=== PATIENT | female | born 1990 | race Caucasian/White ===

== ENCOUNTER 2019-10-18 20:34 | Emergency (ER) | payer OTHER ==
--- OUTSIDE RECORDS SUMMARY | ~2019-10-18 | XMS | Encounter Summary ---
Demographics + + + | Address | [address] | | | [place] [address] | + + + | Home Phone | | + + + | Preferred Language | Unknown | + + + | Marital Status | Single | + + + | Orthodoxy Affiliation | Unknown | + + + | Race | Unknown | + + + | Ethnic Group | Unknown | + + + Author + + + | Author | [facility] | | | and [place] | + + + | Organization | [facility] | | | and [place] | + + + | Address | Unknown | + + + | Phone | Unavailable | + + + Support + + +---------+ + | Name | Relationship | Address | Phone | + + +---------+ + | Keya Chakraborty | ECON | Unknown | | + + +---------+ + Care Team Providers + +------+ + | Care Microfilm Operator Name | Role | Phone | + +------+ + | Stacy Guajardo PA-C | PCP | | + +------+ + Reason for Visit + + + | Reason | Comments | + + + | Knee Pain | left knee injected in August 25, did not improve at all | + + + Encounter Details +--------+---------+ + + + | Date | Type | Department | Care Team | Description | +--------+---------+ + + + | 10/07/ | Office | [facility] | Ryan Youssef, | Prepatellar | | 2013 | Visit | ORTHOPEDIC SURGERY | [place] [facility] [address] | bursitis, left | | | | [address] [place] | [address] [place] | (Primary Dx) | | | | [facility], [place] | [place] [address] | | | | | [address] | [phone] | | | | | [phone] | | | +--------+---------+ + + + Social History + +-------+ +--------+------+ | Tobacco Use | Types | Packs/Day | Years | Date | | | | | Used | | + +-------+ +--------+------+ | Current Every Day | | 0.3 | 7 | | | Smoker | | | | | + +-------+ +--------+------+ + + +---------+ + | Alcohol Use | Drinks/Week | oz/Week | Comments | + + +---------+ + | No | | | RARE | + + +---------+ + + + + | Sex Assigned at | Date Recorded | | | | + + + | Not on file | | + + + documented as of this encounter Last Filed Vital Signs + + + + + | Vital Sign | Reading | Time Taken | Comments | + + + + + | Blood Pressure | - | - | | + + + + + | Pulse | - | - | | + + + + + | Temperature | - | - | | + + + + + | Respiratory Rate | - | - | | + + + + + | Oxygen Saturation | - | - | | + + + + + | Inhaled Oxygen | - | - | | | Concentration | | | | + + + + + | Weight | 131.5 kg (290 lb) | 10/07/2013 10:56 AM | | | | | PDT | | + + + + + | Height | 175.3 cm (5' 9") | 10/07/2013 10:56 AM | | | | | PDT | | + + + + + | Body Mass Index | 42.83 | 10/07/2013 10:56 AM | | | | | PDT | | + + + + + documented in this encounter Progress Notes Ryan Youssef PA - 10/07/2013 11:15 AM PDTSubjective:Tuyet presents to our clinic garo [facility]ong for left knee pain. Patient has had a several year history of waxing and waning prepatel lar bursitis. Patient was seen in our office On august. At this time, I attempted to as pirate fluid but was unable to retrieve any fluid. I did inject 1 cc of Celestone without d ifficulty. Patient did not receive any relief from this. She still today rates her pain ar ound a 4-6/10. With activity, her pain can get much worse than this. At her last visit do to her lateral joint line pain I also order an MRI of her knee however, this was denied by [facility] insurance. Today, she really does not have much lateral joint line pain. Her pain is fo cused just over the patella. Objectively: Inspection of skin is warm dry and intact. No gross deformity.Inspection of er knee does show swelling over the prepatellar bursa. Palpation over this area reveals bog giness in the prepatellar bursa. The surrounding area has well-defined borders. Patient villagomez s pain when palpating over this. There is no evidence of infection. Patient has no pain wh en palpating the infrapatellar tendon. Assessment:Chronic prepatellar bursitis Plan: Patient has had this prepatellar bursitis for a couple of years now. I was unable to aspirate fluid from the last visit and this is likely do to the fluid coming either thick l amanda or possibly even fibrous. There really are no further conservative treatment options av ailable. It is obvious that this is quite uncomfortable for her and she wishes to proceed w ith definitive treatment. Therefore, we will get authorization for a bursectomy of her left knee and she'll have for preop examination with Dr. Carroll. In the meantime, patient wi ll followup with Dr. Ewing regarding her low back pain. The above note was dictated using [employer] voice recognition software. It may have not been p roofread in entirety. Minor errors in grammar may occur. documented in this encounter Plan of Treatment Not on filedocumented as of this encounter Visit Diagnoses + + | Diagnosis | + + | Prepatellar bursitis, left - Primary | + + documented in this encounter
--- OUTSIDE RECORDS SUMMARY | ~2019-10-18 | XMS | Clinical Summary ---
Demographics + + + | Address | [address] | | | [place] [address] | + + + | Home Phone | | + + + | Preferred Language | Unknown | + + + | Marital Status | Single | + + + | Faith Affiliation | Unknown | + + + | Race | Unknown | + + + | Ethnic Group | Unknown | + + + Author + + + | Author | [facility] | | | and [place] | + + + | Organization | [facility] | | | and [...] Team Providers + +------+ + | Care Supervisor Taping Name | Role | Phone | + +------+ + | Stacy Guajardo PA-C | PCP | | + +------+ + Allergies + + + + + + | Active Allergy | Reactions | Severity | Noted | Comments | | | | | Date | | + + + + + + | Sulfa Antibiotics | Hives | Medium | 08/13/19 | | | | | | 14 | | + + + + + + Medications + + + +---------+------+------+-------+ | Medication | Sig | Dispensed | Refills | Star | End | Statu | | | | | | t | Date | s | | | | | | Date | | | + + + +---------+------+------+-------+ | ibuprofen | Take 800 mg by mouth | | 0 | | | Activ | | (ADVIL,MOTRIN) 800 | every 6 hours as | | | | | e | | MG tablet | needed. | | | | | | + + + +---------+------+------+-------+ | cyclobenzaprine | Take 10 mg by mouth | | 0 | | | Activ | | (FLEXERIL) 10 mg | 3 times daily as | | | | | e | | tablet | needed. | | | | | | + + + +---------+------+------+-------+ | FLUoxetine | Take 20 mg by mouth | | 0 | | | Activ | | (PROZAC) 20 mg | Daily. | | | | | e | | capsule | | | | | | | + + + +---------+------+------+-------+ | lisinopril | Take 10 mg by mouth | | 0 | | | Activ | | (PRINIVIL, ZESTRIL) | Daily. | | | | | e | | 10 mg tablet | | | | | | | + + + +---------+------+------+-------+ | meloxicam (MOBIC) | Take 1 tablet by | 30 | 2 | 10/2 | | Activ | | 15 mg tablet | mouth Daily as | tablet | | 1/20 | | e | | | needed for Pain. | | | 14 | | | + + + +---------+------+------+-------+ Active Problems + + + | Problem | Noted Date | + + + | L4-L5 and L5/S1 disc bulge w/ annular tear | 02/01/2014 | + + + | Trochanteric bursitis of both hips = L>R | 02/01/2014 | + + + | Chronic low back pain | 10/21/2013 | + + + | Left leg pain - possibly radicular in nature or may be more | 10/21/2013 | | consistent with IT band syndrome | | + + + Family History + + +------+ + | Medical History | Relation | Name | Comments | + + +------+ + | Alcohol abuse | Father | | | + + +------+ + | Arthritis | Father | | | + + +------+ + | COPD | Father | | | + + +------+ + | Depression | Father | | | + + +------+ + | Diabetes | Father | | | + + +------+ + | Gout | Father | | | + + +------+ + | Hearing loss | Father | | | + + +------+ + | Heart disease | Father | | | + + +------+ + | High blood pressure | Father | | | + + +------+ + | High cholesterol | Father | | | + + +------+ + | Vision loss | Father | | | + + +------+ + | Arthritis | Maternal | | | | | Grandfath | | | | | er | | | + + +------+ + | Asthma | Maternal | | | | | Grandfath | | | | | er | | | + + +------+ + | COPD | Maternal | | | | | Grandfath | | | | | er | | | + + +------+ + | Cancer | Maternal | | | | | Grandfath | | | | | er | | | + + +------+ + | Depression | Maternal | | | | | Grandfath | | | | | er | | | + + +------+ + | Hearing loss | Maternal | | | | | Grandfath | | | | | er | | | + + +------+ + | Arthritis | Maternal | | | | | Grandmoth | | | | | er | | | + + +------+ + | Cancer | Maternal | | | | | Grandmoth | | | | | er | | | + + +------+ + | Depression | Maternal | | | | | Grandmoth | | | | | er | | | + + +------+ + | Diabetes | Maternal | | | | | Grandmoth | | | | | er | | | + + +------+ + | Heart disease | Maternal | | | | | Grandmoth | | | | | er | | | + + +------+ + | High blood pressure | Maternal | | | | | Grandmoth | | | | | er | | | + + +------+ + | High cholesterol | Maternal | | | | | Grandmoth | | | | | er | | | + + +------+ + | Kidney disease | Maternal | | | | | Grandmoth | | | | | er | | | + + +------+ + | Vision loss | Maternal | | | | | Grandmoth | | | | | er | | | + + +------+ + | Arthritis | Mother | | | + + +------+ + | COPD | Mother | | | + + +------+ + | Depression | Mother | | | + + +------+ + | Diabetes | Mother | | | + + +------+ + | Hearing loss | Mother | | | + + +------+ + | High blood pressure | Mother | | | + + +------+ + | Seizures | Mother | | | + + +------+ + | Vision loss | Mother | | | + + +------+ + | Asthma | Paternal | | | | | Grandfath | | | | | er | | | + + +------+ + | COPD | Paternal | | | | | Grandfath | | | | | er | | | + + +------+ + | Cancer | Paternal | | | | | Grandfath | | | | | er | | | + + +------+ + | Depression | Paternal | | | | | Grandfath | | | | | er | | | + + +------+ + | Diabetes | Paternal | | | | | Grandfath | | | | | er | | | + + +------+ + | Heart disease | Paternal | | | | | Grandfath | | | | | er | | | + + +------+ + | High blood pressure | Paternal | | | | | Grandfath | | | | | er | | | + + +------+ + | High cholesterol | Paternal | | | | | Grandfath | | | | | er | | | + + +------+ + + +------+--------+ + | Relation | Name | Status | Comments | + +------+--------+ + | Father | | | | + +------+--------+ + | Maternal Grandfather | | | | + +------+--------+ + | Maternal Grandmother | | | | + +------+--------+ + | Mother | | | | + +------+--------+ + | Paternal Grandfather | | | | + +------+--------+ + Social History + + + +--------+------+ | Tobacco Use | Types | Packs/Day | Years | Date | | | | | Used | | + + + +--------+------+ | Current Every Day | Cigarettes | 0.25 | 7 | | | Smoker | | | | | + + + +--------+------+ + +---+---+---+ | Smokeless Tobacco: | | | | | Never Used | | | | + +---+---+---+ + + | Tobacco Cessation: Counseling Given: Yes | + + + + +---------+ + | Alcohol Use | Drinks/Week | oz/Week | Comments | + + +---------+ + | No | | | RARE | + + +---------+ + + + + | Sex Assigned at | Date Recorded | | | | + + + | Not on file | | + + + Last Filed Vital Signs + + + + + | Vital Sign | Reading | Time Taken | Comments | + + + + + | Blood Pressure | 114/65 | 02/01/2014 1:43 PM | | | | | PDT | | + + + + + | Pulse | 104 | 02/01/2014 1:43 PM | | | | | PDT | | + + + + + | Temperature | 36.4 C (97.6 F) | 12/21/2013 9:56 AM | | | | | PDT | | + + + + + | Respiratory Rate | 18 | 02/01/2014 1:43 PM | | | | | PDT | | + + + + + | Oxygen Saturation | 97% | 11/17/2013 12:15 PM | | | | | PDT | | + + + + + | Inhaled Oxygen | - | - | | | Concentration | | | | + + + + + | Weight | 132 kg (291 lb) | 02/01/2014 1:43 PM | | | | | PDT | | + + + + + | Height | 175.3 cm (5' 9") | 02/01/2014 1:43 PM | | | | | PDT | | + + + + + | Body Mass Index | 42.97 | 02/01/2014 1:43 PM | | | | | PDT | | + + + + + Plan of Treatment + + + + + | Health Maintenance | Due Date | Last | Comments | | | | Done | | + + + + + | Cervical Cancer | | | | | Screening (Pap) | 9 | | | + + + + + | Vaccine: Influenza | | 01/01/20 | | | (#1) | 0 | 17, | | | | | 01/21/20 | | | | | 15 | | + + + + + | Vaccine: | | 03/04/20 | | | Dtap/Tdap/Td (10 - | 7 | 17, | | | Td) | | 08/17/19 | | | | | 17, | | | | | 06/27/19 | | | | | 16, | | | | | Addition | | | | | al | | | | | history | | | | | exists | | + + + + + Results Not on filefrom Last 3 Months Insurance + +--------+ +--------+ +---------+--------+ | Payer | Benefi | Subscriber | Effect | Phone | Address | Type | | | t Plan | ID | brady | | | | | | / | | Dates | | | | | | Group | | | | | | + +--------+ +--------+ +---------+--------+ | [place] | MEDICA | [id number] | | [phone] | | [place] | | | [place] | | 018-Pr | 2 | | id | | | PLUS | | esent | | | | + +--------+ +--------+ +---------+--------+ + +--------+ +--------+ + + | Guarantor Name | Accoun | Relation to | Date | Phone | Billing Address | | | t Type | Patient | of | | | | | | | | | | + +--------+ +--------+ + + | Tuyet Lozoya | Person | Self [birth year] | [address] | | | al/Fam | | 1991 | [phone] | [address] [place], | | | [place] | | | [address] (Home) | [place] [address] | + +--------+ +--------+ + + Advance Directives + + + + + | Type | Date Recorded | Patient | Explanation | | | | Melter Operator | | + + + + + | Power of | | | | | Wrinkle Chaser | | | | + + + + + | Advance | 11/17/2013 12:16 | | | | Directive | PM | | | + + + + + + + + + + | Code Status | Date | Date | Comments | | | Activated | Inactivated | | + + + + + | Full Code | 11/17/2013 | 11/17/2013 | | | | 10:47 AM | 3:12 PM | | + + + + +
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
--- OUTSIDE RECORDS SUMMARY | ~2019-10-18 | XMS | Encounter Summary ---
Demographics + + + | Address | [address] | | | [place] [address] | + + + | Home Phone | | + + + | Preferred Language | Unknown | + + + | Marital Status | Single | + + + | Taoist Affiliation | Unknown | + + + | Race | Unknown | + + + | Ethnic Group | Unknown | + + + Author + + + | Author | [facility] | | | and [place] | + + + | Organization | [facility] | | | and [...] Team Providers + +------+ + | Care Material Carrier Name | Role | Phone | + +------+ + | Stacy Guajardo PA-C | PCP | | + +------+ + Encounter Details +--------+ + + + + | Date | Type | Department | Care Team | Description | +--------+ + + + + | 08/11/ | Orders Only | [facility] | Ryan Youssef, | Knee pain, left | | 2013 | | ORTHOPEDIC SURGERY | PA-C [address] | (Primary Dx); Pain | | | | [address] [place] | [address] [place] | in right knee | | | | [place], [place] | [place] [address] | | | | | [address] | [phone] | | | | | [phone] | | | +--------+ + + + + Social History + +-------+ +--------+------+ | Tobacco Use | Types | Packs/Day | Years | Date | | | | | Used | | + +-------+ +--------+------+ | Never Assessed | | | | | + +-------+ +--------+------+ + + + | Sex Assigned at | Date Recorded | | | | + + + | Not on file | | + + + documented as of this encounter Plan of Treatment Not on filedocumented as of this encounter Results XR Knee Right 4 + Vw (08/12/2013 8:19 AM PDT) + + | Specimen | + + | | + + + + + | Narrative | Performed At | + + + | FOUR VIEWS BILATERAL KNEES 08/12/2013 8:19 AM CLINICAL HISTORY: | MISCELANIOUS | | knee pain COMPARISON: None available FINDINGS: The bones are | LAB | | well mineralized and well aligned. No fracture or dislocation is | | | suspected. The medial femorotibial joint compartments are mild to | | | moderately narrowed bilaterally, while the lateral compartments are | | | maintained. There is mild lateral tilting of the patellae with mild | | | narrowing of the lateral facets of the patellofemoral joints, | | | potentially reflecting abnormal patellar tracking. Trace | | | suprapatellar knee effusions are suggested. Soft tissue structures | | | are otherwise unremarkable. IMPRESSION - 1. ASYMMETRIC | | | NARROWING OF THE MEDIAL FEMOROTIBIAL JOINT COMPARTMENTS AND LATERAL | | | FACETS OF THE PATELLOFEMORAL JOINTS, WITH TRACE KNEE EFFUSIONS. | | | Dictated and Signed by: Russell Franco MD Electronically signed: | | | 08/12/2013 8:55 AM | | + + + + + | Procedure Note | + + | Jeferson, Rad Results In - 08/12/2013 8:58 AM PDT FOUR VIEWS BILATERAL KNEES 08/12/2013 | | 8:19 AMCLINICAL HISTORY: knee painCOMPARISON: None availableFINDINGS: The bones are well | | mineralized and well aligned. No fracture ordislocation is suspected. The medial | | femorotibial joint compartments are mildto moderately narrowed bilaterally, while the | | lateral compartments aremaintained. There is mild lateral tilting of the patellae with | | mild narrowingof the lateral facets of the patellofemoral joints, potentially | | reflectingabnormal patellar tracking. Trace suprapatellar knee effusions are suggested. | | Soft tissue structures are otherwise unremarkable.IMPRESSION -1. ASYMMETRIC NARROWING | | OF THE MEDIAL FEMOROTIBIAL JOINT COMPARTMENTS ANDLATERAL FACETS OF THE PATELLOFEMORAL | | JOINTS, WITH TRACE KNEE EFFUSIONS.Dictated and Signed by: Russell Franco MD | | Electronically signed: 08/12/2013 8:55 AM | |abnormal patellar tracking. Trace suprapatellar knee effusions are suggested. | |Soft tissue structures are otherwise unremarkable. | | | |IMPRESSION - | |1. ASYMMETRIC NARROWING OF THE MEDIAL FEMOROTIBIAL JOINT COMPARTMENTS AND | |LATERAL FACETS OF THE PATELLOFEMORAL JOINTS, WITH TRACE KNEE EFFUSIONS. | | | |Dictated and Signed by: Russell Franco MD | | Electronically signed: 08/12/2013 8:55 AM | + + + +---------+ + + | Performing | Address | City/State/Zipcode | Phone Number | | Organization | | | | + +---------+ + + | [facility] | | | [phone] | + +---------+ + + | MISCELANIOUS LAB | | | [phone] | + +---------+ + + documented in this encounter Visit Diagnoses + + | Diagnosis | + + | Knee pain, left - Primary Pain in joint, lower leg | + + | Pain in right knee Pain in joint, lower leg | + + documented in this encounter"
--- OUTSIDE RECORDS SUMMARY | ~2019-10-18 | XMS | Encounter Summary ---
Demographics + + + | Address | [address] | | | [place] [address] | + + + | Home Phone | | + + + | Preferred Language | Unknown | + + + | Marital Status | Single | + + + | Presybeterian Affiliation | Unknown | + + + | Race | Unknown | + + + | Ethnic Group | Unknown | + + + Author + + + | Author | [facility] | | | and [place] | + + + | Organization | [facility] | | | [...] Team Providers + +------+ + | Care Welding Robot Operator Name | Role | Phone | + +------+ + | Stacy Guajardo PA-C | PCP | | + +------+ + Reason for Visit +--------+--------+ + | Reason | Onset | Comments | | | Date | | +--------+--------+ + | Other | 08/13/ | | | | 2013 | | +--------+--------+ + Encounter Details +--------+ + + + + | Date | Type | Department | Care Team | Description | +--------+ + + + + | 08/13/ | Telephone | [facility] | Ryan Youssef, | Other | | 2013 | | ORTHOPEDIC SURGERY | [place] [address] | | | | | [address] [place] | [address] [place] | | | | | [place], [place] | [place] [address] | | | | | [address] | [phone] | | | | | [phone] | | | +--------+ + + + + Social History + +-------+ +--------+------+ | Tobacco Use | Types | Packs/Day | Years | Date | | | | | Used | | + +-------+ +--------+------+ | Current Every Day | | 0.5 | | | | Smoker | | | | | + +-------+ +--------+------+ + + +---------+ + | Alcohol Use | Drinks/Week | oz/Week | Comments | + + +---------+ + | Not Asked | | | | + + +---------+ + + + + | Sex Assigned at | Date Recorded | | | | + + + | Not on file | | + + + documented as of this encounter Miscellaneous Notes Telephone Encounter - Myra Charles LPN - 08/13/2013 10:24 AM PDTSUBMITTED REFERRAL AND SENT [facility]G TO [facility] FOR CONSULT WITH DR Martin FOR LOW BACK PAIN documented in this encounter Plan of Treatment Not on filedocumented as of this encounter Visit Diagnoses Not on filedocumented in this encounter"
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
--- OUTSIDE RECORDS SUMMARY | ~2019-10-18 | XMS | Encounter Summary ---
Demographics + + + | Address | [address] | | | [place] [address] | + + + | Home Phone | | + + + | Preferred Language | Unknown | + + + | Marital Status | Single | + + + | Amish Affiliation | Unknown | + + + | Race | Unknown | + + + | Ethnic Group | Unknown | + + + Author + + + | Author | [facility] | | | and [place] | + + + | Organization | [facility] | | | [...] Team Providers + +------+ + | Care Grinder Lap Name | Role | Phone | + +------+ + | Stacy Guajardo PA-C | PCP | | + +------+ + Encounter Details +--------+ + + + + | Date | Type | Department | Care Team | Description | +--------+ + + + + | 08/12/ | [facility] | [facility] | Ryan Youssef, | Pain in right knee | | 2014 | Encounter | [facility] | PA-C [address] | | | | | [address] [place] | [address] [place] | | | | | [place], [place] | [place] [address] | | | | | [address] | [phone] | | | | | [phone] | | | +--------+ + + + [...] | + +--------+ + + + | XR KNEE RIGHT 4 + VW | Routin | 08/12/2013 | Pain in right knee | Results for this | | | e | 8:19 AM | | procedure are in the | | | | PDT | | results section. | + +--------+ + + + documented in this encounter Results XR Knee Right 4 [...] + | MISCELLANEOUS LAB | | | [phone] | + +---------+ + + | MISCELANIOUS LAB | | | [phone] | + +---------+ + + documented in this encounter Visit Diagnoses + + | Diagnosis | + + | Pain in right knee Pain in joint, lower leg | + + documented in this encounter"
--- OUTSIDE RECORDS SUMMARY | ~2019-10-18 | XMS | Encounter Summary ---
Demographics + + + | Address | [address] | | | [place] [address] | + + + | Home Phone | | + + + | Preferred Language | Unknown | + + + | Marital Status | Single | + + + | Catholic Affiliation | Unknown | + + + | Race | Unknown | + + + | Ethnic Group | Unknown | + + + Author + + + | Author | [facility] | | | and [place] | + + + | Organization | [facility] | | | and [...] Team Providers + +------+ + | Care Doper Name | Role | Phone | + +------+ + | Stacy Guajardo PA-C | PCP | | + +------+ + Reason for Visit + +--------+ + | Reason | Onset | Comments | | | Date | | + +--------+ + | Medication Refill | 11/23/ | | | | 2013 | | + +--------+ + Encounter Details +--------+--------+ + + + | Date | Type | Department | Care Team | Description | +--------+--------+ + + + | 11/23/ | Refill | [facility] | Damon Carroll | Medication Refill | | 2013 | | ORTHOPEDIC SURGERY | MD [place] [address] | | | | | [address] | [place] | | | | | [place] | [id number] | | | | | [address] | | | | | | [phone] | | | +--------+--------+ + + + Social History + + + +--------+------+ [...] | | | + +---+---+---+ + + +---------+ + | Alcohol Use [...] this encounter Miscellaneous Notes Telephone Encounter - Kamille Lewis Master of [employer] - 11/23/2013 5:35 PM PDTRx called in. Left message notifying patient that her Rx was called in to the pharmacy she requested. Bernie ctronically signed by Kamille Lewis Master of [employer] at 11/23/2013 5:39 PM PDTTelephone Enco addis - Celestina Cruz - 11/23/2013 4:21 PM PDTPatient called stated that we should of called in DURANGO to [facility] [place], pharmacy had no record of this. radha is out of medic ation documented in th is encounter Plan of Treatment Not on filedocumented as of this encounter Visit Diagnoses Not on filedocumented in this encounter"
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
--- OUTSIDE RECORDS SUMMARY | ~2019-10-18 | XMS | Encounter Summary ---
Demographics + + + | Address | [address] | | | [place] [address] | + + + | Home Phone | | + + + | Preferred Language | Unknown | + + + | Marital Status | Single | + + + | Sikhism Affiliation | Unknown | + + + | Race | Unknown | + + + | Ethnic Group | Unknown | + + + Author + + + | Author | [facility] | | | and [place] | + + + | Organization | [facility] | | [...] Team Providers + +------+ + | Care Telegraph Plant Maintainer Name | Role | Phone | + +------+ + | Stacy Guajardo PA-C | PCP | | + +------+ + Reason for Visit +---------+ + | Reason | Comments | +---------+ + | Post Op | rt knee dos 11/17/13 | +---------+ + Encounter Details +--------+---------+ + + + | Date | Type | Department | Care Team | Description | +--------+---------+ + + + | 11/30/ | Office | [facility] | Damon Carroll | S/P orthopedic | | 2013 | Visit | ORTHOPEDIC SURGERY | [place] [address] | surgery, follow-up | | | | [address] | [place] | exam (Primary Dx) | | | | [place] | [address] | | | | | [address] | | | | | | [phone] | | | +--------+---------+ + + + Social History + + [...] + + + + | Temperature | 36.2 C (97.1 F) | 11/30/2013 9:36 AM | | | | | PDT [...] + + + + | Weight | 131.1 kg (289 lb) | 11/30/2013 9:36 AM | | | | | PDT | | + + + + + | Height | 175.3 cm (5' 9") | 11/30/2013 9:36 AM | | | | | PDT | | + + + + + | Body Mass Index | 42.68 | 11/30/2013 9:36 AM | | | | | PDT | | + + + + + documented in this encounter Progress Notes Damon Carroll MD - 11/30/2013 7:06 PM PDTSee soap note [id number].Electronically jarek d by Damon Carroll MD at 11/30/2013 7:06 PM Damon Huffman MD - 11/30/2013 12:00 AM PDT ORTHOPEDICS [facility] [address] FAX: [phone] OFFICE VISIT Tuyet returns today for followup of her left knee prepatellar bursectomy performed 014, approximately 13 days ago. Today, she notes moderate pain, but feels that she is gradu ally improving. She had to discontinue use of the knee immobilizer, which kept sliding down her leg. EXAM The left knee is examined, the bandages are removed. The incision is clean, dry, and healin g nicely. There is no evidence of drainage, infection or of significant knee swelling. ADVICE: Today sutures were removed and Steri-Strips and benzoin were applied and a 6-inch A ce wrap was applied. The patient advised to keep her knee straight as much as possible. We will plan to see her back for a clinical check in approximately 3 weeks. Damon Carroll MD RH / PAP JOB #: [id number] signed by Damon Carroll MD at 12/23/2013 3:47 PM PDTdo cumented in this encounter Plan of Treatment Not on filedocumented as of this encounter Visit Diagnoses + + | Diagnosis | + + | S/P orthopedic surgery, follow-up exam - Primary Follow-up examination, following | | other surgery | + + documented in this encounter
--- OUTSIDE RECORDS SUMMARY | ~2019-10-18 | XMS | Encounter Summary ---
Demographics + + + | Address | [address] | | | [place] [address] | + + + | Home Phone | | + + + | Preferred Language | Unknown | + + + | Marital Status | Single | + + + | Hindu Affiliation | Unknown | + + + | Race | Unknown | + + + | Ethnic Group | Unknown | + + + Author + + + | Author | [facility] | | | and [place] | + + + | Organization | [facility] | | [...] Team Providers + +------+ + | Care Marriage Performer Name | Role | Phone | + +------+ + | Stacy Guajardo PA-C | PCP | | + +------+ + Reason for Visit +---------+ + | Reason | Comments | +---------+ + | Post Op | left knee pre patellar bursectomy dos 11/27/13 | +---------+ + Encounter Details +--------+---------+ + + + | Date | Type | Department | Care Team | Description | +--------+---------+ + + + | 12/21/ | Office | [facility] | Ryan Youssef, | Follow-up | | 2013 | Visit | ORTHOPEDIC SURGERY | [place] [address] | examination after | | | | [address] [facility] | [address] | orthopedic surgery | | | | [place], [place] | [place] [address] | (Primary Dx) | | | | [address] | [phone] | | | | | [phone] | | | +--------+---------+ + + + [...] Weight | 132 kg (291 lb) | 12/21/2013 9:56 AM | | | | | PDT | | + + + + + | Height | 175.3 cm (5' 9") | 12/21/2013 9:56 AM | | | | | PDT | | + + + + + | Body Mass Index | 42.97 | 12/21/2013 9:56 AM | | | | | PDT | | + + + + + documented in this encounter Progress Notes Ryan Youssef PA - 12/22/2013 7:28 AM PDTS: Tuyet presents for clinic today for post op evaluation. Tuyet Lozoya had a left knee bursectomy done on November 17, 2013. Patient is doing fine at this time with no complaints or concerns. Patient reports it already feels better than it did prior to surgery, but does complain of some hypersensitivity within the incision. Pain at this time is rated as a 4 to5/10. Shehas already progressed to a full asiya ghtbearing and is not taking pain medication on an intermittent basis. No other complaints or concerns at this time. Objectively: Inspection the affected when shows no erythema swelling ecchymosis or anatomic al abnormality. Skin is warm dry and intact. There is no evidence of drainage or infection . Patient has full range of motion at this time and walks with minimal limp. Assessment: Status post knee arthroscopy with debridement Plan: Patient can advance her activities as tolerated. It is recommended that she take a b ronda aspirin a day for the next month. Patient has been instructed on techniques for desensi tizing the incision. She is encouraged for the next 6-8 weeks not to kneel down on the affe cted knee. If there are any further problems, questions, or concerns, I'll be happy to see her back on as-needed basis, otherwise, patient will return back for office for one last vis it in approximately 4-6 weeks. documented in this encounter Plan of Treatment Not on filedocumented as of this encounter Visit Diagnoses + + | Diagnosis | + + | Follow-up examination after orthopedic surgery - Primary Follow-up examination, | | following other surgery | + + documented in this encounter
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
--- OUTSIDE RECORDS SUMMARY | ~2019-10-18 | XMS | Encounter Summary ---
Demographics + + + | Address | [address] | | | [place] [address] | + + + | Home Phone | | + + + | Preferred Language | Unknown | + + + | Marital Status | Single | + + + | Methodist Affiliation | Unknown | + + + | Race | Unknown | + + + | Ethnic Group | Unknown | + + + Author + + + | Author | [facility] | | | and [place] | + + + | Organization | [facility] | | [...] Team Providers + +------+ + | Care Reefer Engineer Name | Role | Phone | + +------+ + | Stacy Guajardo PA-C | PCP | | + +------+ + Encounter Details +--------+ + + + + | Date | Type | Department | Care Team | Description | +--------+ + + + + | 08/12/ | Hospital | [facility] | Ryan Youssef, | Knee pain, left | | 2013 | Encounter | [facility] | PA-C [address] | | | | | [address] [place] | [address] [place] | | | | | [place], [place] | [place] [address] | | | | | [address] | [phone] | | | | | [phone] | | | +--------+ + + + [...] +--------+ + + + | XR KNEE LEFT 1 - 2 | Routin | 08/12/2013 | Knee pain, left | Results for this | | VW | e | 8:19 AM | | procedure are in the | | | | PDT | | results section. | + +--------+ + + + documented in this encounter Results XR Knee Left 1 - 2 Vw (08/12/2013 8:19 AM PDT) + + [...] + | MISCELLANEOUS LAB | | | [phone] | + +---------+ + + | MISCELANIOUS LAB | | | [phone] | + +---------+ + + documented in this encounter Visit Diagnoses + + | Diagnosis | + + | Knee pain, left Pain in joint, lower leg | + + documented in this encounter"
--- OUTSIDE RECORDS SUMMARY | ~2019-10-18 | XMS | Encounter Summary ---
Demographics + + + | Address | [address] | | | [place] [address] | + + + | Home Phone | | + + + | Preferred Language | Unknown | + + + | Marital Status | Single | + + + | Sikh Affiliation | Unknown | + + + | Race | Unknown | + + + | Ethnic Group | Unknown | + + + Author + + + | Author | [facility] | | | and [place] | + + + | Organization | [facility] | | [...] Team Providers + +------+ + | Care Clerk To Justice Name | Role | Phone | + +------+ + | Stacy Guajardo PA-C | PCP | | + +------+ + Encounter Details +--------+ + + + + | Date | Type | Department | Care Team | Description | +--------+ + + + + | 11/16/ | Hospital | [facility] | Damon Carroll | Patellar bursitis, | | 2014 | Encounter | [facility] | MD [place] [address] | left | | | | [address] [place] | [place] | | | | | [place] | [address] | | | | | [address] | | | | | | [phone] | | | +--------+ + + + + Social History + + [...] at Time of Discharge + + + +---------+ + + | Medication | Sig | Dispensed | Refills | Start | End Date | | | | | | Date | | + + + +---------+ + + | cyclobenzaprine | Take 10 mg by mouth | | 0 | | | | (FLEXERIL) 10 mg | 3 times daily as | | | | | | tablet | needed. | | | | | + + + +---------+ + + | FLUoxetine | Take 20 mg by mouth | | 0 | | | | (PROZAC) 20 mg | Daily. | | | | | | capsule | | | | | | + + + +---------+ + + | ibuprofen | Take 800 mg by mouth | | 0 | | | | (ADVIL,MOTRIN) 800 | every 6 hours as | | | | | | MG tablet | needed. | | | | | + + + +---------+ + + | lisinopril | Take 10 mg by mouth | | 0 | | | | (PRINIVIL, ZESTRIL) | Daily. | | | | | | 10 mg tablet | | | | | | + + + +---------+ + + | | Take 1 tablet by | | 0 | | | | HYDROcodone-acetamin | mouth every 6 hours | | | | 4 | | ophen (NORCO) 5-325 | as needed. | | | | | | mg per tablet | | | | | | + + + +---------+ + + | | Take 1-2 tablets by | 60 | 0 | 11/18/19 | | | HYDROcodone-acetamin | mouth every 6 hours | tablet | | 14 | 4 | | ophen (NORCO) | as needed for Pain | | | | | | 7.5-325 mg per | for up to 10 days. | | | | | | tablet | | | | | | + + + +---------+ + + documented as of this encounter Plan of Treatment Not on filedocumented as of this encounter Procedures + +--------+ + + + | Procedure Name | Priori | Date/Time | Associated Diagnosis | Comments | | | ty | | | | + +--------+ + + + | URINALYSIS WITH | Routin | 11/16/2013 | Patellar bursitis, | Results for this | | MICROSCOPIC WITH | e | 12:36 PM | left | procedure are in the | | CULTURE IF INDICATED | | PDT | | results section. | + +--------+ + + + | CBC WITH | Routin | 11/16/2013 | Patellar bursitis, | Results for this | | DIFFERENTIAL | e | 12:30 PM | left | procedure are in the | | | | PDT | | results section. | + +--------+ + + + | COMPREHENSIVE | Routin | 11/16/2013 | Patellar bursitis, | Results for this | | METABOLIC PANEL | e | 12:30 PM | left | procedure are in the | | | | PDT | | results section. | + +--------+ + + + documented in this encounter Results Urinalysis with Microscopic with Culture if Indicated (11/16/2013 12:36 PM PDT) + + + + + + | Component | Value | Ref Range | Performed | Pathologist | | | | | At | Signature | + + + + + + | Color, | Yellow | Light Yellow, | [facility] | | | Urine | | Yellow | [facility] | | | | | | MEDICAL | | | | | | CENTER - | | | | | | LABORATORY | | + + + + + + | Clarity | Hazy (A) | Clear | [facility] | | | | | | [facility] | | | | | | [facility] | | | | | | CENTER - | | | | | | LABORATORY | | + + + + + + | pH, Urine | 6.0 | 5.0 - 8.0 | [facility] | | | | | | [facility] | | | | | | MEDICAL | | | | | | CENTER - | | | | | | LABORATORY | | + + + + + + | Specific | >=1.030 | 1.001 - 1.030 | [facility] | | | [place], | | | [facility] | | | Urine | | | MEDICAL | | | | | | CENTER - | | | | | | LABORATORY | | + + + + + + | Protein, | Negative | Negative, | [facility] | | | Urine | | Trace, 30 mg/dL | [facility] | | | | | | MEDICAL | | | | | | CENTER - | | | | | | LABORATORY | | + + + + + + | Blood, | Trace (A) | Negative | [facility] | | | Urine | | | [facility] | | | | | | MEDICAL | | | | | | CENTER - | | | | | | LABORATORY | | + + + + + + | Glucose, | Negative | Negative | [facility] | | | Urine | | | [facility] | | | | | | MEDICAL | | | | | | CENTER - | | | | | | LABORATORY | | + + + + + + | Ketones, | Negative | Negative | [facility] | | | Urine | | | [facility] | | | | | | MEDICAL | | | | | | CENTER - | | | | | | LABORATORY | | + + + + + + | Bilirubin, | Negative | Negative | [facility] | | | Urine | | | [facility] | | | | | | MEDICAL | | | | | | CENTER - | | | | | | LABORATORY | | + + + + + + | Nitrite, | Negative | Negative | [facility] | | | Urine | | | [facility] | | | | | | MEDICAL | | | | | | CENTER - | | | | | | LABORATORY | | + + + + + + | Leukocyte | Negative | Negative | [facility] | | | Esterase, | | | [facility] | | | Urine | | | MEDICAL | | | | | | CENTER - | | | | | | LABORATORY | | + + + + + + | Urobilinoge | 0.2 E.U./dL | 0.2 E.U./dL | [facility] | | | n, Urine | | | [facility] | | | | | | MEDICAL | | | | | | CENTER - | | | | | | LABORATORY | | + + + + + + | White Blood | 0-2 | 0 - 2 /HPF | [facility] | | | Cells, | | | [facility] | | | Urine | | | MEDICAL | | | | | | CENTER - | | | | | | LABORATORY | | + + + + + + | Red Blood | 2-5 (A) | 0 - 2 /HPF | [facility] | | | Cells, | | | [facility] | | | Urine | | | MEDICAL | | | | | | CENTER - | | | | | | LABORATORY | | + + + + + + | Squamous | 5-10 (A) | 0 - 2 /LPF | [facility] | | | Epithelial | | | [facility] | | | Cells, | | | MEDICAL | | | Urine | | | CENTER - | | | | | | LABORATORY | | + + + + + + | Bacteria, | 2+ (A) | Negative /HPF | [facility] | | | Urine | | | [facility] | | | | | | MEDICAL | | | | | | CENTER - | | | | | | LABORATORY | | + + + + + + | Urine | Urine Culture Not | | [facility] | | | Comment | Indicated | | [facility] | | | | | | MEDICAL | | | | | | CENTER - | | | | | | LABORATORY | | + + + + + + + + | Specimen | + + | Urine | + + + + + + + | Performing | Address | City/State/Zipcode | Phone Number | | Organization | | | | + + + + + | [facility] | [address] | [place], [place] | [phone] | | [facility] | | [address] | | | - LABORATORY | | | | + + + + + | [facility] | [address] | [place], [place] | | | [facility] | | [address] [place] [address] | | | - LABORATORY | | | | + + + + + Comprehensive Metabolic Panel (11/16/2013 12:30 PM PDT) + + + + + + | Component | Value | Ref Range | Performed | Pathologist | | | | | At | Signature | + + + + + + | Na | 137 | 136 - 149 | [facility] | | | | | mmol/L | [facility] | | | | | | MEDICAL | | | | | | CENTER - | | | | | | LABORATORY | | + + + + + + | K | 3.9 | 3.5 - 5.1 | [facility] | | | | | mmol/L | [facility] | | | | | | MEDICAL | | | | | | CENTER - | | | | | | LABORATORY | | + + + + + + | Cl | 106 | 98 - 109 mmol/L | [facility] | | | | | | [facility] | | | | | | MEDICAL | | | | | | CENTER - | | | | | | LABORATORY | | + + + + + + | CO2 | 24 | 24 - 31 mmol/L | [facility] | | | | | | [facility] | | | | | | MEDICAL | | | | | | CENTER - | | | | | | LABORATORY | | + + + + + + | Anion Gap | 7 | 3 - 16 mmol/L | [facility] | | | | | | [facility] | | | | | | MEDICAL | | | | | | CENTER - | | | | | | LABORATORY | | + + + + + + | Glucose | 122 (H) | 70 - 109 mg/dL | [facility] | | | | | | [facility] | | | | | | MEDICAL | | | | | | CENTER - | | | | | | LABORATORY | | + + + + + + | BUN | 6 (L) | 7 - 18 mg/dL | [facility] | | | | | | [facility] | | | | | | [facility] | | | | | | C[facility] - | | | | | | LABORATORY | | + + + + + + | Creatinine | 0.76 | 0.60 - 1.30 | [facility] | | | | | mg/dL | [facility] | | | | | | MEDICAL | | | | | | CENTER - | | | | | | LABORATORY | | + + + + + + | eGFR if not | >60Comment: GLOMERULAR | >=60 | [facility] | | | | FILTRATION | mL/min/1.73m2 | [facility] | | | MAURITIAN | RATE,ESTIMATED | | MEDICAL | | | | mL/min/1.31x0Xzwb than | | CENTER - | | | | 60 Chronic kidney | | LABORATORY | | | | disease,if found over a | | | | | | 3-month period.Less than | | | | | | 15 Kidney failureFor | | | | | | | | | | | | Americans,multiply the | | | | | | calculated GFR by 1.21. | | | | | | | | | | + + + + + + | Calcium | 9.1 | 8.3 - 10.5 | [facility] | | | | | mg/dL | [facility] | | | | | | MEDICAL | | | | | | CENTER - | | | | | | LABORATORY | | + + + + + + | Albumin | 3.8 | 3.2 - 5.0 g/dL | [facility] | | | | | | [facility] | | | | | | MEDICAL | | | | | | CENTER - | | | | | | LABORATORY | | + + + + + + | Bilirubin | 0.7 | 0.1 - 1.5 mg/dL | [facility] | | | Total | | | [facility] | | | | | | MEDICAL | | | | | | CENTER - | | | | | | LABORATORY | | + + + + + + | Total | 6.6 | 6.0 - 7.8 g/dL | [facility] | | | Protein | | | [facility] | | | | | | MEDICAL | | | | | | CENTER - | | | | | | LABORATORY | | + + + + + + | AST | 30 | 10 - 42 U/L | [facility] | | | | | | [facility] | | | | | | MEDICAL | | | | | | CENTER - | | | | | | LABORATORY | | + + + + + + | ALT | 55 (H) | 6 - 45 U/L | [facility] | | | | | | [facility] | | | | | | MEDICAL | | | | | | CENTER - | | | | | | LABORATORY | | + + + + + + | Alkaline | 113 (H) | 40 - 110 U/L | [facility] | | | Phosphatase | | | [facility] | | | | | | MEDICAL | | | | | | CENTER - | | | | | | LABORATORY | | + + + + + + | Globulin | 2.8 | g/dL | [facility] | | | | | | [facility] | | | [facility] | | MEDICAL | | | | | | CENTER - | | | | | | LABORATORY | | + + + + + + | Albumin/Irma | 1.4 | | [facility] | | | bulin Ratio | | | [facility] | | | | | | MEDICAL | | | | | | CENTER - | | | | | | LABORATORY | | + + + + + + | BUN/Creatin | 7.9 | | [facility] | | | ine Ratio | | | [facility] | | | | | | MEDICAL | | | | | | CENTER - | | | | | | LABORATORY | | + + + + + + + + | Specimen | + + | Blood | + + + + + + + | Performing | Address | City/State/Zipcode | Phone Number | | Organization | | | | + + + + + | [facility] | [address] | [place], [place] | [phone] | | [facility] | | [address] | | | - LABORATORY | | | | + + + + + | [facility] | [address] | [place], [place] | | | [facility] | | [address] [place] [address] | | | - LABORATORY | | | | + + + + + CBC with Differential (11/16/2013 12:30 PM PDT) + + + + + + | Component | Value | Ref Range | Performed | Pathologist | | | | | At | Signature | + + + + + + | WBC | 12.4 (H) | 4.0 - 11.0 K/uL | [facility] | | | | | | [facility] | | | | | | MEDICAL | | | | | | CENTER - | | | | | | LABORATORY | | + + + + + + | RBC | 4.33 | 3.70 - 5.20 | [facility] | | | | | M/uL | [facility] | | | | | | MEDICAL | | | | | | CENTER - | | | | | | LABORATORY | | + + + + + + | Hemoglobin | 13.9 | 11.5 - 16.0 | [facility] | | | | | g/dL | [facility] | | | | | | MEDICAL | | | | | | CENTER - | | | | | | LABORATORY | | + + + + + + | Hematocrit | 41.7 | 34.0 - 47.0 % | [facility] | | | | | | [facility] | | | | | | MEDICAL | | | | | | CENTER - | | | | | | LABORATORY | | + + + + + + | MCV | 96.2 | 83.0 - 101.0 fL | [facility] | | | | | | [facility] | | | | | | MEDICAL | | | | | | CENTER - | | | | | | LABORATORY | | + + + + + + | MCH | 32.1 | 28.0 - 35.0 pg | [facility] | | | | | | [facility] | | | | | | MEDICAL | | | | | | CENTER - | | | | | | LABORATORY | | + + + + + + | MCHC | 33.4 | 32.0 - 36.0 | [facility] | | | | | g/dL | [facility] | | | | | | MEDICAL | | | | | | CENTER - | | | | | | LABORATORY | | + + + + + + | RDW-CV | 13.9 | <15.0 % | [facility] | | | | | | [facility] | | | | | | MEDICAL | | | | | | CENTER - | | | | | | LABORATORY | | + + + + + + | Platelet | 243 | 140 - 440 K/uL | [facility] | | | Count | | | [facility] | | | | | | MEDICAL | | | | | | CENTER - | | | | | | LABORATORY | | + + + + + + | MPV | 9.5 | fL | [facility] | | | | | | [facility] | | | | | | MEDICAL | | | | | | CENTER - | | | | | | LABORATORY | | + + + + + + | % | 66.3 | 45.0 - 82.0 % | [facility] | | | Neutrophils | | | [facility] | | | | | | MEDICAL | | | | | | CENTER - | | | | | | LABORATORY | | + + + + + + | % | 20.1 | 20.0 - 45.0 % | [facility] | | | Lymphocytes | | | [facility] | | | | | | MEDICAL | | | | | | CENTER - | | | | | | LABORATORY | | + + + + + + | % Monocytes | 6.0 | 4.0 - 12.0 % | [facility] | | | | | | [facility] | | | | | | MEDICAL | | | | | | CENTER - | | | | | | LABORATORY | | + + + + + + | % | 6.4 (H) | 0.0 - 5.0 % | [facility] | | | Eosinophils | | | [facility] | | | | | | MEDICAL | | | | | | CENTER - | | | | | | LABORATORY | | + + + + + + | % Basophils | 1.2 (H) | 0.0 - 1.0 % | [facility] | | | | | | [facility] | | | | | | MEDICAL | | | | | | CENTER - | | | | | | LABORATORY | | + + + + + + | Absolute | 8.20 | 1.80 - 8.50 | [facility] | | | Neutrophils | | K/uL | [facility] | | | | | | MEDICAL | | | | | | CENTER - | | | | | | LABORATORY | | + + + + + + | Absolute | 2.50 | 0.60 - 3.20 | [facility] | | | Lymphocytes | | K/uL | [facility] | | | | | | MEDICAL | | | | | | CENTER - | | | | | | LABORATORY | | + + + + + + | Absolute | 0.70 | 0.00 - 1.00 | [facility] | | | Monocytes | | K/uL | [facility] | | | | | | MEDICAL | | | | | | CENTER - | | | | | | LABORATORY | | + + + + + + | Absolute | 0.80 (H) | 0.00 - 0.40 | [facility] | | | Eosinophils | | K/uL | [facility] | | | | | | MEDICAL | | | | | | CENTER - | | | | | | LABORATORY | | + + + + + + | Absolute | 0.20 (H) | 0.00 - 0.10 | [facility] | | | Basophils | | K/uL | [facility] | | | | | | MEDICAL | | | | | | CENTER - | | | | | | LABORATORY | | + + + + + + + + | Specimen | + + | Blood | + + + + + + + | Performing | Address | City/State/Zipcode | Phone Number | | Organization | | | | + + + + + | [facility] | [address] | [place] | [phone] | | [facility] | | [address] | | | - LABORATORY | | | | + + + + + | [facility] | [address] | [place] | | | [facility] | | [address], [facility] | | | - LABORATORY | | | | + + + + + documented in this encounter Visit Diagnoses + + | Diagnosis | + + | Patellar bursitis, left | + + documented in this encounter"
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
--- OUTSIDE RECORDS SUMMARY | ~2019-10-18 | XMS | Encounter Summary ---
Demographics + + + | Address | [address] | | | [place] [address] | + + + | Home Phone | | + + + | Preferred Language | Unknown | + + + | Marital Status | Single | + + + | Yazdanism Affiliation | Unknown | + + + | Race | Unknown | + + + | Ethnic Group | Unknown | + + + Author + + + | Author | [facility] | | | and [place] | + + + | Organization | [facility] | | | [...] Team Providers + +------+ + | Care Sticker Operator Name | Role | Phone | + +------+ + | Stacy Guajardo PA-C | PCP | | + +------+ + Reason for Visit Auth/Cert +--------+--------+ + [...] | | | | | | | IN REMOVAL | | | | | | [...] + + + + | 11/17/ | Anesthesia | [facility] | Kun Woo | | | 2013 | Event | [facility] | MD Oli [address] | | | | | [address] | [address] [facility] | | | | | [place] | [place] [address] | | | | | [phone] | | | | | | | | | +--------+ + + + + Anesthesia Record + + + + + | Procedure Name | Responsible | Anesthesia Start | Anesthesia Stop Time | | | Anesthesiologist | Time | | + + + + + | LEFT KNEE PATELLAR | | 11/17/13 0900 | 11/17/13 1003 | | BURSECTOMY (Left | | | | | Knee) | | | | + + + + + +----+---+ + + | Da | T | Event | Comment | | te | i | | | | | m | | | | | e | | | +----+---+ + + | 08 | 0 | | | | /0 | 8 | | | | 6/ | 5 | | | | 20 | 6 | | | | 14 | | | | +----+---+ + + | | 0 | An Checkout | Pre-use anesthesia machine/equipment checkout. | | | 8 | | | | | 5 | | | | | 8 | | | +----+---+ + + | | 0 | An Start | Reassessment prior to anesthesia induction/procedure. | | | 9 | | | | | 0 | | | | | 0 | | | +----+---+ + + | | 0 | Antibiotic | | | | 9 | Given | | | | 0 | | | | | 5 | | | +----+---+ + + | | 0 | Preoxygenat | | | | 9 | ed | | | | 0 | | | | | 8 | | | +----+---+ + + | | 0 | An | | | | 9 | Induction | | | | 1 | | | | | 0 | | | +----+---+ + + | | 0 | An | | | | 9 | Intubation | | | | 1 | | | | | 1 | | | +----+---+ + + | | 0 | AN Bite | | | | 9 | Block | | | | 1 | | | | | 5 | | | +----+---+ + + | | 0 | Oakley | | | | 9 | 43-degrees | | | | 1 | | | | | 7 | | | +----+---+ + + | | 0 | An Tourn | 350 mmHg | | | 9 | Inflated | | | | 2 | | | | | 1 | | | +----+---+ + + | | 0 | an belem now | incision | | | 9 | | | | | 2 | | | | | 2 | | | +----+---+ + + | | 0 | An Patient | | | | 9 | Move | | | | 2 | | | | | 3 | | | +----+---+ + + | | 0 | An Tourn | | | | 9 | Deflated | | | | 3 | | | | | 1 | | | +----+---+ + + | | 0 | Oakley off | | | | 9 | | | | | 5 | | | | | 8 | | | +----+---+ + + | | 0 | Extubated | | | | 9 | Awake | | | | 5 | | | | | 8 | | | +----+---+ + + | | 0 | an stop | | | | 9 | data | | | | 5 | | | | | 8 | | | +----+---+ + + | | 1 | An Stop | Patient handed off to recovery nurse. | | | 0 | | | | | 3 | | | +----+---+ + + +------+ | Meds | +------+ + +---------+ | Name | Total | + +---------+ | fentaNYL | 100 mcg | + +---------+ | lidocaine 2% (PF) | 75 mg | + +---------+ | propofol | 250 mg | + +---------+ | dexamethasone | 10 mg | + +---------+ | ondansetron | 4 mg | + +---------+ | ceFAZolin in dextrose (ANCEF) | 2 g | | IVPB 2 g | | + +---------+ | HYDROmorphone | 1 mg | + +---------+ | ketorolac | 30 mg | + +---------+ | lactated ringers (LR) infusion | 800 mL | + +---------+ + + | Name | + + | N2O Flow Rate (L/Min) | + + | O2 Flow Rate (L/Min) | + + | Insp O2 | + + | Exp SEV | + + | Exp MARY | + + | Air Flow Rate (L/Min) | + + + + | No blood administrations on file. | + + +--------+ + + + | Type | Details | Placement | Removal | +--------+ + + + | [READ | 11/17/13; 0758; Hematology; | 11/17/13 0758 by | 11/17/13 1304 by | | ONLY] | healing within expectations; | Siddhartha Gonzales RN | Monika Xavier RN | | | 11/17/13; 1304 | | | | Periph | | | | | eral | | | | | IV - | | | | | Single | | | | | Lumen | | | | | | | | | +--------+ + + + | Airway | Placement Date: 11/17/13; | 11/17/13 09 by Tor | 11/17/13 0958 by Tor | | | Placement Time: 910; Mask | Oli Woo MD | Oli Woo MD | | | Ventilation: EZ; Attempts: 1; | | | | | Airway Type: laryngeal mask, | | | | | non-disposable; Size: 3; Trauma: | | | | | none; Placement Check: verified | | | | | by capnography; Placed By: | | | | | Anesthesiologist; Removal Date: | | | | | 11/17/13; Removal Time: 957 | | | +--------+ + + + | Read | 11/17/13; 0930; Left; knee; | 11/17/13 0930 by | 11/17/13 1304 by | | only - | healing within expectations; | Martina Busby, | Monika Xavier RN | | | 11/17/13; 1304 | RN | | | Incisi | | | | | on | | | | +--------+ + + + documented in this encounter Social History + + + +--------+------+ | [...] + + documented as of this encounter OR Notes Anesthesia Postprocedure Evaluation - Kun Woo MD - 11/17/2013 11:07 AM PDTForm atting of this note might be different from the original. ANESTHESIA POSTANESTHESIA EVALUATION Tuyet Lozoya 23 y.o. female 1990 [id number] Procedure: Procedure(s):LEFT KNEE PATELLAR BURSECTOMY Filed Vitals: 11/17/13 1015 11/17/13 1020 11/17/13 1025 BP: 128/74 126/64 124/74 Pulse: 94 88 83 Temp: 36.9 C (98.4 F) Resp: 17 18 16 SpO2: 96% 98% 95% Cooperates? Yes Mental Status Performs simple tasks. Respiratory Satisfactory - Airway patent (self maintained). Cardiovascular Satisfactory Blood pressure and heart rate acceptable Temperature Satisfactory Pain Satisfactory N/V Control Satisfactory Hydration Satisfactory No signs of dehydration Complications None apparent Electronically signed by Kun Woo MD 11/17/2013 11:07 [facility] nesthesia Prepro cedure Evaluation - Kun Woo MD - 11/16/2013 2:42 PM PDT ANESTHESIA PREANESTHESIA EVALUATION Tuyet Lozoya 23 y.o. female 1990 [id number] Scheduled procedure INCISION AND DRAINAGE LOWER EXTREMITY [[id number]] - LEFT KNEE PATELLAR BURSECTOMY Medical history, anesthesia, medications, allergy histories reviewed. Labs reviewed. ROS / Med History Ane (-) PONV, difficult intubation, malignant hyperthermia . NPO status verified. CV (-) CAD, angina. Exercise tolerance >4 METS. Pulm No acute pulmonary concerns. (+) asthma. (-) COPD, sleep apnea. Psych (+) depression. Renal (-) end-stage renal disease Endo (+) obesity: morbid BMI 40+. Physical Exam Airway MP I, TM >3 FB, Mouth opening >2 FB. Neck: full ROM, extends >30 degrees. Dental ; Gr ossly normal except where noted below. CV Rhythm regular. Rate Normal. (-) murmur. Pulm Clear to auscultation bilaterally. Neuro Grossly normal. Anesthesia Plan ASA 3 Type: General. Induction: Intravenous. Potential problems: None anticipated. Monitors: Standard ASA monitors. Consent statement:Anesthetic plan, alternatives, risks and benefits discussed with patient. Risks discussed included (but were not limited to): sore throat, nausea, , perioperati ve CV events, stroke, . Consenting person understands and agrees to proceed. PARQ. . Electronically Signed by: Kun Woo MD ESig date/time: 11/17/2013 8:54 documented in thi s encounter Miscellaneous Notes Addendum Note - Kun Woo MD - 11/17/2013 11:20 AM PDTFormatting of this note mi ght be different from the original. Addendum created 11/17/13 1120 by Kun Woo MD Modules edited:Anesthesia LDA ddendum Note - Kun Woo MD - 11/17/2013 11:07 AM PDT Addendum created 11/17/13 1107 by Kun Woo MD Modules edited:Notes Section documented in th is encounter Plan of Treatment Not on filedocumented as of this encounter Visit Diagnoses Not on filedocumented in this encounter Administered Medications + +--------+ +------+------+------+ | Medication Order | MAR | Action | Dose | Rate | Site | | | Action | Date | | | | + +--------+ +------+------+------+ | ceFAZolin in dextrose (ANCEF) | Given | 11/18/19 | 2 g | | | | IVPB 2 g 2 g, Intravenous, | | 14 9:05 | | | | | Administer over 30 Minutes, Prior | | AM PDT | | | | | to Incision, Starting Fri11/17/13 | | | | | | | at 0801, For 1 dose, 30 minutes | | | | | | | prior to surgery., Pre-op | | | | | | + +--------+ +------+------+------+ +---+---+ | | | +---+---+ + +-------+ +-------+---+---+ | dexamethasone (DECADRON) 10 | Given | 11/18/19 | 10 mg | | | | mg/mL injection Intravenous, | | 14 9:10 | | | | | PRN, Starting Fri11/17/13 at 0910, | | AM PDT | | | | | Anesthesia Intra-op | | | | | | + +-------+ +-------+---+---+ +---+---+ | | | +---+---+ + +-------+ +---------+---+---+ | fentaNYL injection PRN, Pain, | Given | 11/18/19 | 100 mcg | | | | Starting 11/17/13 at 0910, | | 14 9:10 | | | | | Anesthesia Intra-op | | AM PDT | | | | + +-------+ +---------+---+---+ +---+---+ | | | +---+---+ + +-------+ +--------+---+---+ | HYDROmorphone (PF) (DILAUDID) 2 | Given | 11/18/19 | 0.5 mg | | | | mg/mL injection Intravenous, | | 14 9:42 | | | | | PRN, Pain, Starting 11/17/13 at | | AM PDT | | | | | 0927, Anesthesia Intra-op | | | | | | + +-------+ +--------+---+---+ +-------+ +--------+---+---+ | Given | 11/18/19 | 0.5 mg | | | | | 14 9:27 | | | | | | AM PDT | | | | +-------+ +--------+---+---+ +---+---+ | | | +---+---+ + +-------+ +-------+---+---+ | ketorolac (TORADOL) injection | Given | 11/18/19 | 30 mg | | | | Intravenous, PRN, Pain, Starting | | 14 9:43 | | | | | 11/17/13 at 0943, Anesthesia | | AM PDT | | | | | Intra-op | | | | | | + +-------+ +-------+---+---+ +---+---+ | | | +---+---+ + +-------+ +-------+---+---+ | lidocaine (PF) 2% injection | Given | 11/18/19 | 75 mg | | | | PRN, Starting 11/17/13 at 0910, | | 14 9:10 | | | | | Anesthesia Intra-op | | AM PDT | | | | + +-------+ +-------+---+---+ +---+---+ | | | +---+---+ + +-------+ +------+---+---+ | ondansetron (ZOFRAN) injection | Given | 11/18/19 | 4 mg | | | | PRN, Nausea, Vomiting, Starting | | 14 9:10 | | | | | Fri11/17/13 at 0910, Anesthesia | | AM PDT | | | | | Intra-op | | | | | | + +-------+ +------+---+---+ +---+---+ | | | +---+---+ + +-------+ +--------+---+---+ | propofol (DIPRIVAN) injection | Given | 11/18/19 | 100 mg | | | | PRN, Starting Fri11/17/13 at 0910, | | 14 9:23 | | | | | Anesthesia Intra-op | | AM PDT | | | | + +-------+ +--------+---+---+ +-------+ +--------+---+---+ | Given | 11/18/19 | 150 mg | | | | | 14 9:10 | | | | | | AM PDT | | | | +-------+ +--------+---+---+ +---+---+ | | | +---+---+ documented in this encounter"
--- OUTSIDE RECORDS SUMMARY | ~2019-10-18 | XMS | Encounter Summary ---
Demographics + + + | Address | [address] | | | [place] [address] | + + + | Home Phone | | + + + | Preferred Language | Unknown | + + + | Marital Status | Single | + + + | Scientologist Affiliation | Unknown | + + + | Race | Unknown | + + + | Ethnic Group | Unknown | + + + Author + + + | Author | [facility] | | | and [place] | + + + | Organization | [facility] | | [...] Team Providers + +------+ + | Care Android Platform Developer Name | Role | Phone | + +------+ + | Stacy Guajardo PA-C | PCP | | + +------+ + Encounter Details +--------+ + + + + | Date | Type | Department | Care Team | Description | +--------+ + + + + | 10/01/ | Abstract | [facility] | Bernardo Ewing | | | 2013 | | PHYSIATRY [address] | [facility] [address] | | | | [address] | [place], [place] | | | | | [place], [place] | [address] | | | | | [address] | | | | | | [phone] | | | +--------+ + + + [...]
--- OUTSIDE RECORDS SUMMARY | ~2019-10-18 | XMS | Encounter Summary ---
Demographics + + + | Address | [address] | | | [place] [address] | + + + | Home Phone | | + + + | Preferred Language | Unknown | + + + | Marital Status | Single | + + + | Yarsanism Affiliation | Unknown | + + + | Race | Unknown | + + + | Ethnic Group | Unknown | + + + Author + + + | Author | [facility] | | | and [place] | + + + | Organization | [facility] | | [...] Team Providers + +------+ + | Care [place] Name | Role | Phone | + [...] | | | | | | | NM REMOVAL | | | | | | [...] Description | +--------+---------+ + + + | 11/17/ | Surgery | [facility] | Damon Morales | LEFT KNEE PATELLAR | | 2013 | | MED CTR OR INTRA OP | MD [place] [address] | BURSECTOMY | | | | [address] | [place] | | | | | [place] | [address] | | | | | [address] | | | | | | [phone] | | | +--------+---------+ + + + [...] + + + | Blood Pressure | 131/76 | 11/17/2013 12:15 PM | | | | | PDT | | + + + + + | Pulse | 79 | 11/17/2013 12:15 PM | | | | | PDT | | + + + + + | Temperature | 36.9 C (98.4 F) | 11/17/2013 10:25 AM | | | | | PDT | | + + + + + | Respiratory Rate | 16 | 11/17/2013 12:15 PM | | | [...] encounter Discharge Instructions Damon Altamirano MD - 11/17/2013Please keep appointment in Dr Morales's office as already scheduled. Leave knee immobilizer on drain tiler. May weight bear on left foot as [...] as of this encounter H&P Notes Damon Morales MD - 11/17/2013 7:[facility] H[facility]ORY AND PHYSICAL UPDATE Pt. Name/Age/: Godwin Lewis 23 y.o. 1990 Date of admission: 11/17/2013 The current H&P was reviewed. The patient was reexamined. Re-evaluation of the patient co nfirms the necessity for the scheduled procedure. No change has occurred in the patient s condition since the H&P was completed less than 30 days ago. Electronically signed by: Damon Morales, 11/17/2013 7:20 [facility] - 11/16/2013 12:20 PM PDT History [...] th is encounter Procedure Notes ONBASE SCAN [facility] - 11/23/2013 12:00 AM PDTAssociated Order(s): PATHOLOGY - EXTERNAL SCANEle ctronically signed by Danish Moore at 11/23/2013 1:52 PM PDTONBASE SCAN [facility] - 11/17/2013 1 2:00 AM PDTAssociated Order(s): PATHOLOGY - EXTERNAL SCAN documented in this encounter Miscellaneous Notes Miscellaneous - ONBASE SCAN [facility] - 11/23/2013 12:00 AM PDT lan of Care - ONBASE SCAN [facility] - 11/18/2013 12:00 AM PDTElec tronically signed by priyanka [facility] at 11/18/2013 12:09 PM PDTMiscellaneous - ONBASE SCAN [facility] - 11/18/2013 12:00 AM PDT n patient Medication Chart - ONBASE SCAN [facility] - 11/18/2013 12:00 AM PDT p Note - Damon Morales MD - 11/17/2013 10: 17 AM PDT [address] [address] OPERATIVE REPORT DAMON MORALES MD Patient: GODWIN LEWIS Admitting: DAMON MORALES MR #: [id number] LOC: PT TYPE: Adm Date: 11/17/2013 : 1990 DATE OF SURGERY AND DATE OF DICTATION: 11/17/2013. OPERATING SURGEON: Damon Morales MD. ANESTHESIOLOGIST: Kun Woo MD. PREOPERATIVE DIAGNOSIS: [...] left knee prepatellar bursitis. PROGNOSIS: Good. DAMON MORALES MD Dictated by DAMON MORALES MD 11/17/2013 10:17:13 Transcribed on 11/17/2013 10:27:39 by karlos job# [id number] Confirmation #: [id number] cc: STACY CURRAN MDElectronically signed by Damon Morales MD at 11/17 12:08 PM PDTBrief Op Note - Damon Morales MD - 11/17/2013 10:07 AM PDTFormatti ng of this note might be different from the original. Brief Operative Note Godwin Lewis 23 y.o. female 1990 [id number] Proc. Date 11/17/2013 Preop Dx Prepatellar bursitis, left Other internal derangement of knee Postop Dx same Procedure Procedure(s):LEFT KNEE PATELLAR BURSECTOMY Anesthesia General ([place]) Surgeon Surgeon(s) and Role: * Damon Morales MD - Primary Decal Applier NA EBL 10 cc Findings Pre patellar bursitis and scarring. Complications none Specimens ID Type Source Tests Collected by Time Destination A : Pre-patella bursa left knee Tissue Knee, Left SPECIMEN TO PATHOLOGY Damon Morales MD 11/17/2013 0931 Pathology Drains Electronically signed by: Damon Morales MD 11/17/2013 10:07 [facility] Op note dictation # [id number]. 1 0:17 AM PDTdocumented in this encounter [...] - 1.030 | [facility] | | | [place], | | | [facility] | | [...] + | [facility] | [address] | [place], [place] | [phone] | | [facility] | | [address] | | | - LABORATORY | | | | + + + + + | [facility] | [address] | [place], [place] | | | [facility] | | [address] [place] [address] | | | - LABORATORY | | [...] [facility] | | | | | | [facility] | | | | | | MEDICAL | | | | | | CENTER - | | | | | | LABORATORY | | + + + + + + | Creatinine | 0.76 | 0.60 - 1.30 | [facility] | | | | | mg/dL | [facility] | | | | | | MEDICAL | | | | | | CENTER - | | | | | | LABORATORY | | + + + + + + | eGFR if not | >60Comment: GLOMERULAR | >=60 | [facility] | | | | FILTRATION | mL/min/1.73m2 | [facility] | | | GUAMANIAN | RATE,ESTIMATED | | MEDICAL | | | | mL/min/1.10q9Dzpw than | | CENTER - | | [...] | | | | mg/dL | [facility] | | | | | | MEDICAL | | | | | | CENTER - | | | | | | LABORATORY | | + + + + + + | Albumin | 3.8 | 3.2 - 5.0 g/dL | [facility] | | | | | | [facility] | | | | [...] + | [facility] | [address] | [place], [place] | [phone] | | [facility] | | [address] | | | - LABORATORY | | | | + + + + + | [facility] | [address] | [place], [place] | | | [facility] | | [id number] [place] [address] | | | - LABORATORY | | [...] | | | | M/uL | [facility] | | | | [...] | | Neutrophils | | K/uL | [facility] | | | | | | MEDICAL | | | | | | CENTER - | | | | | | LABORATORY | | + + + + + + | Absolute | 2.50 | 0.60 - 3.20 | [facility] | | | Lymphocytes | | K/uL | [facility] | | | | | | MEDICAL | | | | | | CENTER - | | | | | | LABORATORY | | + + + + + + | Absolute | 0.70 | 0.00 - 1.00 | [facility] | | | Monocytes | | K/uL | [facility] | | | | | | MEDICAL | | | | | | CENTER - | | | | | | LABORATORY | | + + + + + + | Absolute | 0.80 (H) | 0.00 - 0.40 | [facility] | | | Eosinophils | | K/uL | [facility] | | | | | | MEDICAL | | | | | | CENTER - | | | | | | LABORATORY | | + + + + + + | Absolute | 0.20 (H) | 0.00 - 0.10 | [facility] | | | Basophils | | K/uL [...] | [address] | [place] | [phone] | | [facility] | | [address] | | | - LABORATORY | | | | + + + + + | [facility] | [address] | [place], [place] | | | [facility] | | [address], [facility] | | | - LABORATORY | | | | + + + + + documented in this encounter Visit Diagnoses + + | Diagnosis | + + | Prepatellar bursitis, left | + + | Other internal derangement of knee(717.89) Other internal derangement of knee | + + documented in this encounter [...] | mL/hr | | | CONTINUOUS, Starting 11/17/13 | | AM PDT | | | [...] PRN, Pain, Starting 11/17/13 at | | PM PDT | | [...] | | | | | | | Fri11/17/13 at 1046, MAX 12 | | | | | | | tabs/24hrs. If ineffective use | | | | | | | Oxycodone if ordered. If not | | | | | | | tolerated use [place] 10/325 if | | | | | | | ordered, Post-op/Phase II | | | | | | + +-------+ +---------+---+---+ +---+---+ | | | +---+---+ + +-------+ +--------+---+---+ | ropivacaine (NAROPIN) 5 mg/mL | Given | 11/18/19 | 30 mLs | | | | (0.5%) injection PRN, Starting | | 14 9:52 | | | | | Fri11/17/13 at 0952, Intra-op | | AM PDT | | | | + +-------+ +--------+---+---+ +---+---+ | | | +---+---+ documented in this encounter
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
[~2019-10-18 20:34] MED LIST: CYCLOBENZAPRINE5 MG PO; DILAUDID2 MG PO; FLUOXETINE HCL20 MG PO; LISINOPRIL10 MG PO; NORCO 5-325 TA1 EACH PO
--- OUTSIDE RECORDS SUMMARY | 2019-10-18 20:36 | XMS ---
PreManage Notification: GODWIN LEWIS Security String Cutter Events No recent Security Events currently on file CRITERIA MET - [facility] - 2 Visits in 30 Days [facility]: [phone] Manuel has no Care Guidelines for this patient. Travis VISIT COUNT (12 MO.) [address] TOTAL 4 NOTE: Visits indicate total known visits. ED/UCC VISIT TRACKING (12 MO.) 10/18/2019 20:34 [facility] [place] TYPE: Emergency COMPLAINT: - ABDOMINAL PAIN 10/17/2019 09:39 [facility] [place] TYPE: Emergency DIAGNOSES: - side pain - Muscle spasm of back 11/12/2018 16:17 [facility] [place] TYPE: Emergency DIAGNOSES: - ABD PAIN 11/11/2018 07:39 [facility] [place] TYPE: Emergency DIAGNOSES: - Cystitis, unspecified without hematuria - Contusion of abdominal wall, initial encounter - abdominal pain INPATIENT VISIT TRACKING (12 MO.) 10/30/2018 21:41 [facility] [place] TYPE: [facility] DIAGNOSES: - Inpt Induction TOLAC GDM Insulin 38 wks [email or web address]
== END 2019-10-18 21:30 | disposition left against medical advice (07) ==
LOC: ED 20:34
DX: R10.9 Unspecified abdominal pain (principal); Z53.21 Procedure and treatment not carried out due to patient leaving prior to being seen by health care provider

== ENCOUNTER 2020-03-14 18:11 | Emergency (ER) | payer OTHER ==
[~2020-03-14] VITALS: Ht 177.8 cm; Wt 117.9 kg
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
== END 2020-03-14 19:48 | disposition home or self-care (01) ==
LOC: ED 18:11
DX: S06.0X0A Concussion without loss of consciousness, initial encounter (principal); S46.911A Strain of unspecified muscle, fascia and tendon at shoulder and upper arm level, right arm, initial encounter; Z87.442 Personal history of urinary calculi; F32.9 Major depressive disorder, single episode, unspecified; I10 Essential (primary) hypertension; E66.9 Obesity, unspecified; F17.200 Nicotine dependence, unspecified, uncomplicated; Z88.2 Allergy status to sulfonamides; Z79.891 Long term (current) use of opiate analgesic; V49.9XXA Car occupant (driver) (passenger) injured in unspecified traffic accident, initial encounter
CPT/HCPCS: 99283